=== PATIENT | male | born 1985 ===

== ENCOUNTER 2017-10-11 01:06 | Inpatient (IN) | payer OTHER ==
[2017-10-11 01:19] VITALS: BMI 26.4
[2017-10-11 01:23] VITALS: O2SAT 98
[2017-10-11 02:16] LABS: BASO % 0.3 % (0.0-2.0); EOS # 0.2 K/uL (0.0-0.7); EOS % 2.9 % (0.0-4.0); HEMOGLOBIN 16.2 g/dL (12.0-18.0); LYMPH # 0.9 K/uL (1.0-4.3); LYMPH % 14.5 % (20.0-40.0); MEAN CELL VOLUME 87.3 fl (80.0-94.0); MEAN CORPUSCULAR HEMOGLOBIN 30.5 pg (27.0-31.0); MEAN PLATELET VOLUME 9.2 fl (7.2-11.7); MONO # 0.4 K/uL (0.0-0.8); MONO % 5.6 % (0.0-10.0); NEUT # 4.8 K/uL (1.8-7.0); NEUT % 76.7 % (50.0-75.0); RBC 5.32 Mil/uL (4.40-5.90); RED CELL DISTRIBUTION WIDTH 13.8 % (11.5-14.5); WHITE BLOOD COUNT 6.3 K/uL (4.8-10.8)
--- NOTE | 2017-10-11 02:30 | ED PDOC ---
HPI: Psych/Substance Abuse Time Seen by Provider: 10/11/17 01:24 Chief Complaint (Nursing): Psychiatric Evaluation Chief Complaint (Provider): Psychiatric Evaluation History Per: Patient History/Exam Limitations: no limitations Onset/Duration Of Symptoms: Persistent (x2 weeks) Current Symptoms Are (Timing): Still Present Additional Complaint(s): 31 year old male with medical history of PTSD, anxiety and depression, presents to the emergency department for an evaluation of suicidal ideation. Patient admits to recent reckless behavior including drinking alcohol daily and cocaine use (last use was 3 days ago). He reports, around 1999 last night, he felt extremely overwhelmed with personal and emotional stressors and walked up to the roof of his building with intent to jump off of it. He further admits to having suicidal ideation in the past with plan to shoot himself with his gun but no longer has it in his possession. He has no other family nearby as they all live in [place]. Patient has not been on psych medications since discontinuing it in 2010. PMD: none provided Past Medical History Reviewed: Historical Data, Nursing Documentation, Vital Signs Vital Signs: Last Vital Signs Temp 97.8 F 10/11/17 01:19 Pulse 94 H 10/11/17 01:19 Resp 18 10/11/17 01:19 BP 156/93 H 10/11/17 01:19 Pulse Ox 98 10/11/17 01:19 - Medical History PMH: Anxiety, Depression, Post Traumatic Stress Disorder - Surgical History Surgical History: No Surg Hx - Family History Family History: States: Unknown Family Hx - Social History Current smoker - smoking cessation education provided: No Alcohol: > 2 Drinks/Day Drugs: Cocaine - Home Medications Home Medications: Ambulatory Orders Medication Instructions Recorded No Known Home Med 10/11/17 - Allergies Allergies/Adverse Reactions: Allergies Allergy/AdvReac Type Severity Reaction Status Date / Time dextromethorphan Allergy RASH Verified 10/11/17 05:09 Review of Systems ROS Statement: Except As Marked, All Systems Reviewed And Found Negative Psych: Positive for: Anxiety, Suicidal ideation. Negative for: Other (auido or visual hallucination) Physical Exam - Reviewed Nursing Documentation Reviewed: Yes Vital Signs Reviewed: Yes - Physical Exam Comments: GENERAL APPEARANCE: Patient is awake, alert, oriented x 3, pacing around room. Tearful. SKIN: Warm, dry; (-) cyanosis HEAD: (-) scalp swelling, (-) scalp tenderness. EYES: (-) conjunctival pallor, (-) scleral icterus, (-) nystagmus. ENMT: Mucous membranes moist. Airway patent: (-) stridor. NECK: Supple, FROM(-) tenderness, (-) stiffness, (-) lymphadenopathy. CHEST AND RESPIRATORY: (-) rales, (-) rhonchi, (-) wheezes; breath sounds equal. Respirations even and nonlabored. ABDOMEN: Soft, (-) distention, (-) tenderness, (-) guarding. NEURO AND PSYCH: Mental status as above. (+) clear speech and steady gait. Affect: Emotionally distraught, anxious, but cooperative. 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 Pupils equal and reactive; EOMI; (-) facial asymmetry; tongue and uvula midline. Strength symmetric. - Laboratory Results Result Diagrams: 10/11/17 02:12 10/11/17 02:43 - ECG O2 Sat by Pulse Oximetry: 98 (RA) Pulse Ox Interpretation: Normal Medical Decision Making Medical Decision Making: Initial Impression: Psychiatric Evaluation; Suicidal Ideation Initial Plan: * Alcohol serum * CMP * Drug screen, urine * Crisis evaluation * CBC * 1:1 OBS * UA Time: 0206 --Upon crisis evaluation, patient was offered psychiatric admission for further evaluation and treatment as per Dr. Kilgore. Patient agreeable to admission. Clinical Impression: Depression 0355 Labs reviewed. Diagnostic results d/w the patient in great detail. Diagnosis of depression d/w the patient. Based on history, exam and diagnostic results, plan will be for inpatient admission. Patient is medically stable for psychiatric admission. Arrangements made for admission. On exam, patient remains AAOx3. Neck is supple, lungs CTA, cardiac RRR, abdomen is soft and non-tender, neuro exam shows no focal findings. Vitals stable. 0410 EKG requested by psychiatric department. EKG ordered and reviewed. EKG: NSR @ 67bpm (-) ST elevation (-) ectopy; QTc 390 Scribe Attestation: Documented by Caroline Barreto, acting as a scribe for Cat Machado PA-C. Provider Scribe Attestation: All medical record entries made by the Scribe were at my direction and personally dictated by me. I have reviewed the chart and agree that the record accurately reflects my personal performance of the history, physical exam, medical decision making, and the department course for this patient. I have also personally directed, reviewed, and agree with the discharge instructions and disposition. Disposition - Clinical Impression Clinical Impression: Depression, Suicidal ideation - Patient ED Disposition Is Patient to be Admitted: Yes Counseled Patient/Family Regarding: Diagnosis - Disposition Disposition Time: 03:57 Condition: FAIR - Pt Status Changed To: Hospital Disposition Of: Inpatient - Admit Certification Admit to Inpatient:: After my assessment, the patient will require hospitalization for at least two midnights. This is because of the severity of symptoms shown, intensity of services needed, and/or the medical risk in this patient being treated as an outpatient. - POA Present On Arrival: None Results - Lab Results Lab Results: 10/11/17 10/11/17 10/11/17 03:19 03:19 02:43 WBC RBC Hgb Hct MCV MCH MCHC RDW Plt Count MPV Neut % (Auto) Lymph % (Auto) [place] % (Auto) Eos % (Auto) Baso % (Auto) Neut # (Auto) Lymph # (Auto) [place] # (Auto) Eos # (Auto) Baso # (Auto) Sodium 142 Potassium 4.4 Chloride 103 Carbon Dioxide 24 Anion Gap 19 BUN 12 Creatinine 1.0 Est GFR ( Amer) > 60 Est GFR (Non-Af Amer) > 60 Random Glucose 124 H Calcium 9.5 Total Bilirubin 0.5 AST 24 ALT 17 L Alkaline Phosphatase 53 Total Protein 8.1 Albumin 5.0 Globulin 3.1 Albumin/Globulin Ratio 1.6 Urine Color Straw Urine Clarity Clear Urine pH 7.0 Ur Specific [place] 1.011 Urine Protein Negative Urine Glucose (UA) Neg Urine Ketones Negative Urine Blood Negative Urine Nitrate Negative Urine Bilirubin Negative Urine Urobilinogen 0.2-1.0 Ur Leukocyte Esterase Neg Urine RBC (Auto) < 1 Urine Opiates Screen Negative Urine Methadone Screen Negative Ur Barbiturates Screen Negative Ur Phencyclidine Scrn Negative Ur Amphetamines Screen Negative U Benzodiazepines Scrn Negative U Oth Cocaine Metabols Positive H U Cannabinoids Screen Positive H Alcohol, Quantitative 10/11/17 10/11/17 02:12 01:55 WBC 6.3 RBC 5.32 Hgb 16.2 Hct 46.4 MCV 87.3 MCH 30.5 MCHC 35.0 RDW 13.8 Plt Count 200 MPV 9.2 Neut % (Auto) 76.7 H Lymph % (Auto) 14.5 L [place] % (Auto) 5.6 Eos % (Auto) 2.9 Baso % (Auto) 0.3 Neut # (Auto) 4.8 Lymph # (Auto) 0.9 L [place] # (Auto) 0.4 Eos # (Auto) 0.2 Baso # (Auto) 0.0 Sodium Potassium Chloride Carbon Dioxide Anion Gap BUN Creatinine Est GFR ( Amer) Est GFR (Non-Af Amer) Random Glucose Calcium Total Bilirubin AST ALT Alkaline Phosphatase Total Protein Albumin Globulin Albumin/Globulin Ratio Urine Color Urine Clarity Urine pH Ur Specific [place] Urine Protein Urine Glucose (UA) Urine Ketones Urine Blood Urine Nitrate Urine Bilirubin Urine Urobilinogen Ur Leukocyte Esterase Urine RBC (Auto) Urine Opiates Screen Urine Methadone Screen Ur Barbiturates Screen Ur Phencyclidine Scrn Ur Amphetamines Screen U Benzodiazepines Scrn U Oth Cocaine Metabols U Cannabinoids Screen Alcohol, Quantitative < 10
[2017-10-11 02:52] LABS: ALB/GLOB RATIO 1.6 (1.0-2.1); ALT/SGPT 17 U/L (21-72); AST/SGOT 24 U/L (17-59); BLOOD UREA NITROGEN 12 mg/dl (9-20); CALCIUM 9.5 mg/dL (8.4-10.2); GFR AFRICAN-AMERICAN > 60; GFR NON-AFRICAN AMERICAN > 60
[2017-10-11 03:25] LABS: URINE BILIRUBIN NEGATIVE (NEGATIVE); URINE BLOOD NEGATIVE (NEGATIVE); URINE CLARITY CLEAR (Clear); URINE COLOR STRAW (YELLOW); URINE GLUCOSE (UA) NEG (Normal); URINE LEUKOCYTE ESTERASE NEG Leu/uL (Negative); URINE PROTEIN NEGATIVE (NEGATIVE); URINE UROBILINOGEN 0.2-1.0 mg/dL (0.2-1.0)
[2017-10-11 03:48] LABS: BARBITURATES, UR NEGATIVE (NEGATIVE); BENZODIAZEPINES, UR NEGATIVE (NEGATIVE); OPIATES, UR NEGATIVE (NEGATIVE); PHENCYCLIDINE, UR NEGATIVE (NEGATIVE)
[2017-10-11] MEDS ORDERED: Magnesium Hydroxide Susp 30 ml UD PO PRN (04:40)
[2017-10-11] MEDS ORDERED: Alum-Mag Hydrox-Simethicone Susp (30 mL) PO PRN (04:40)
[2017-10-11] MEDS ORDERED: DiphenhydrAMINE 50 mg/ml Inj IM PRN (04:40)
--- NOTE | 2017-10-11 05:00 | PCM.BM ---
<Jerry Gates P - Last Filed: 10/11/17 04:57> Treatment Plan Problems - Problems identified on initial assessmt Hopelessness/Helplessness Date Initiated: 10/11/17 Time Initiated: 04:58 Assessment reference: NA Status: Active Treatment assets and liabiliti Patient Assests: cooperative, physically healthy, negotiates basic needs, cognitively intact Patient Liabilities: poor support system, relationship conflicts, substance abuse - Milieu Protocol Maintain good personal hygiene: daily Encourage regular showers, daily Remind patient to perform daily oral care, daily Assist patient to perform ADL's Conduct patient checks and document Observation sheet: Q15 minutes Maintain personal safety: every shift Educate patient to report safety concerns to staff, every shift Monitor environment for contraband/sharps Medication safety: Monitor for expected outcome, potential side effects: every shift, Assess barriers to learning: every shift, Assess readiness for medication education: every shift <Abdi Brown J - Last Filed: 10/12/17 16:11> Family Contact Family involvement: Family/SO is involved Family contact: Family has been contacted by patient, Patient declines to allow family contact at present Family contact name: Pt refused. Family contacted how many times per week?: 2 - Goals for Treatment Patient goals for treatment: Pt asked to leave during the assesment, yet appeared severely depressed. Rn Family explained the importance to stay and engage in treatment and pt became tearful. Discharge/Continuing Care - Education Needs Education Needs: Patient Medication, Patient Diagnosis/Disease Process, Patient Coping Skills, Patient Aftercare Safety Plan - Discharge Discharge Criteria: Tolerates medication w/o severe side effects, Free of Suicidal thoughts, Free of agitation, Normal sleep pattern, Reduction of target symptoms Discharge to:: Home - Treatment Team Participation Discussed with Family/SO: No <Lyubov Elena - Last Filed: 10/13/17 16:14> Discharge/Continuing Care - Treatment Team Participation Patient/Family/SO Statement: 10/13/17 16:14 Pt. attended tx team this morning to discuss progress on 3NP and tx goals. Pt. reported improvement in symptoms of depression and anxiety since admission. Pt. reported improved sleep and decrease in irritability. Pt. discharge focused and requested to be discharged today. Tx team provided psychoeducation regarding benefits of proper stabilization and importance of having appropriate aftercare secured. Pt. reported being able to seek outpatient therapy services independently in the community, stating [facility] done it before. I [facility] a [facility] Pt. expressed ambivalence towards compliance with medication upon discharge, stating I think I need the meds less than I need therapy. Rn Family encouraged patient to remain on 3NP to receive assistance with aftercare to ensure safety in the community and reduce risk of future hospitalizations. Pt. continues to present as easily irritable and socially withdrawn on 3NP. Pt. encouraged to attend groups on 3NP to promote socialization and improve insight and coping skills. Pt. minimally receptive to feedback. Pt. reports having a trip booked to [place] from 10/19 -10/24 and having plans to relocate to [place] to be with family in the near future. Pt. identified family as protective factors. Was Patient/Family/SO present at Treatment Team Meeting: Yes <Lori Souza - Last Filed: 10/15/17 09:33> - Diagnosis (1) Depression Status: Acute Interventions: pharmacotherapy psychotherapy 10/15/17 09:32
[2017-10-11] MEDS: Multivitamin With Minerals Tab PO SCH (09:19)
--- NOTE | 2017-10-11 10:13 | CARD ---
APPROVED REPORT EKG Measurement Heart [id number] <Conclusion> Normal sinus rhythm Normal ECG
--- NOTE | 2017-10-11 15:27 | CP.PCM.CON ---
History of Present Illness - History of Present Illness History of Present Illness: 31 y/o with NO past medical history is admitted to psychiatry unit for evaluation of suicidal ideation and attempts. Pt states being drinking excessive amount of alcohol, cocaine and marihuana use every day for the past 2 weeks. Pt tried to commit suicide by jumping out from a roof and came to ED yesterday looking for help. Pt admits to suicidal attempt 8 months ago and 2 years ago. Pt c/o headache but attributes to high alcohol intake. Pt reports being on the [employer] in the past and has NO idea on what to do with his life. Pt denies fever, chest pain, SOB, abdominal pain, palpitations, nausea, vomiting, change in bowel movement or rash. NKDA Medications: None. PMHx: denied. PSHx: denied. FHx: NC SHx: Alcohol abuse, marihuana consumption, 2 cigarettes every other day. Review of Systems - Constitutional Constitutional: Headache. absent: Anorexia, Chills - EENT Eyes: absent: Change in Vision - Cardiovascular Cardiovascular: absent: Chest Pain, Chest Pain at Rest, Claudication, Diaphoresis - Respiratory Respiratory: absent: Cough, Dyspnea, Hemoptysis - Gastrointestinal Gastrointestinal: absent: Abdominal Pain, Belching, Bloating, Change in Bowel Habits - Genitourinary Genitourinary: absent: Difficulty Urinating, Dysuria, Hematuria - Neurological Neurological: absent: Abnormal Hearing, Abnormal Movements, Convulsions, Dizziness Past Patient History - Past Social History Alcohol: > 2 Drinks/Day Drugs: Cocaine - CARDIAC Hx Cardiac Disorders: No - PULMONARY Hx Respiratory Disorders: No Hx Tuberculosis: No - NEUROLOGICAL Hx Neurological Disorder: No HX Cerebrovascular Accident: No Hx Seizures: No - HEENT Hx HEENT Problems: No - RENAL Hx Chronic Kidney Disease: No - ENDOCRINE/METABOLIC Hx Endocrine Disorders: No - HEMATOLOGICAL/ONCOLOGICAL Hx Blood Disorders: No Hx Cancer: No Hx Human Immunodeficiency Virus (HIV): No - INTEGUMENTARY Hx Dermatological Problems: No - MUSCULOSKELETAL/RHEUMATOLOGICAL Hx Musculoskeletal Disorders: No - GASTROINTESTINAL Hx Gastrointestinal Disorders: No - GENITOURINARY/GYNECOLOGICAL Hx Genitourinary Disorders: No Hx Sexually Transmitted Disorders: No - PSYCHIATRIC Hx Anxiety: Yes Hx Depression: Yes Hx Substance Use: Yes (mj and cocaine daily past 3wks) - SURGICAL HISTORY Hx Surgeries: No - ANESTHESIA Hx Anesthesia: No Meds Allergies/Adverse Reactions: Allergies Allergy/AdvReac Type Severity Reaction Status Date / Time dextromethorphan Allergy RASH Verified 10/11/17 05:09 - Medications Medications: Current Medications Acetaminophen (Tylenol 325mg Tab) 650 mg PO Q4 PRN PRN Reason: pain level 4-7 Al Hydrox/Mg Hydrox/Simethicone (Maalox Plus 30 Ml) 30 ml PO Q4 PRN PRN Reason: Dyspepsia Bupropion HCl (Wellbutrin) 75 mg PO DAILY [facility] Diphenhydramine HCl (Benadryl) 50 mg IM Q6 PRN PRN Reason: Extrapyramidal S/S Unable PO Diphenhydramine HCl (Benadryl) 50 mg PO Q6 PRN PRN Reason: Extrapyramidal Symptoms Diphenhydramine HCl (Benadryl) 50 mg PO HS PRN PRN Reason: Sleep Folic Acid (Folic Acid) 1 mg PO DAILY [facility] Last Admin: 10/11/17 09:18 Dose: 1 mg Gabapentin (Neurontin) 100 mg PO TID [facility] Haloperidol (Haldol) 5 mg PO Q4 PRN PRN Reason: Agitation Haloperidol Lactate (Haldol) 5 mg IM Q4 PRN PRN Reason: Agitation, Unable to Take PO Lorazepam (Ativan) 2 mg IM Q4 PRN PRN Reason: Anxiety/Agitation,Unable PO Lorazepam (Ativan) 1 mg PO TID [facility] Last Admin: 10/11/17 13:11 Dose: 1 mg Lorazepam (Ativan) 1 mg PO TID PRN PRN Reason: Anxiety Magnesium Hydroxide (Milk Of Magnesia) 30 ml PO HS PRN PRN Reason: Constipation Multivitamins/Minerals (Therapeutic-M Tab) 1 tab PO DAILY [facility] Last Admin: 10/11/17 09:19 Dose: 1 tab Thiamine HCl (Vitamin B1 Tab) 100 mg PO DAILY [facility] Last Admin: 10/11/17 09:19 Dose: 100 mg Trazodone HCl (Desyrel) 100 mg PO HS [facility] Physical Exam - Constitutional Appears: No Acute Distress - Head Exam Head Exam: NORMAL INSPECTION - Eye Exam Eye Exam: EOMI, Normal appearance, PERRL - ENT Exam ENT Exam: Mucous Membranes Moist, Normal Exam - Neck Exam Neck exam: Positive for: Full Rom, Normal Inspection. Negative for: Lymphadenopathy, Meningismus - Respiratory Exam Respiratory Exam: Clear to Auscultation Bilateral, NORMAL BREATHING PATTERN - Cardiovascular Exam Cardiovascular Exam: REGULAR RHYTHM, +S1, +S2 - GI/Abdominal Exam GI & Abdominal Exam: Normal Bowel Sounds, Soft. absent: Guarding, Tenderness - Extremities Exam Extremities exam: Positive for: full ROM, normal inspection. Negative for: joint swelling, pedal edema, tenderness - Neurological Exam Neurological exam: Alert, Normal Gait, Oriented x3 - Psychiatric Exam Psychiatric exam: Depressed Results - Vital Signs Recent Vital Signs: Last Vital Signs Temp 97.8 F 10/11/17 01:19 Pulse 67 10/11/17 04:29 Resp 18 10/11/17 01:19 BP 122/63 10/11/17 04:29 Pulse Ox 98 10/11/17 04:27 - Labs Result Diagrams: 10/11/17 02:12 10/11/17 02:43 Labs: Laboratory Results - last 24 hr 10/11/17 10/11/17 10/11/17 01:55 02:12 02:43 WBC 6.3 RBC 5.32 Hgb 16.2 Hct 46.4 MCV 87.3 MCH 30.5 MCHC 35.0 RDW 13.8 Plt Count 200 MPV 9.2 Neut % (Auto) 76.7 H Lymph % (Auto) 14.5 L [place] % (Auto) 5.6 Eos % (Auto) 2.9 Baso % (Auto) 0.3 Neut # (Auto) 4.8 Lymph # (Auto) 0.9 L [place] # (Auto) 0.4 Eos # (Auto) 0.2 Baso # (Auto) 0.0 Sodium 142 Potassium 4.4 Chloride 103 Carbon Dioxide 24 Anion Gap 19 BUN 12 Creatinine 1.0 Est GFR ( Amer) > 60 Est GFR (Non-Af Amer) > 60 Random Glucose 124 H Calcium 9.5 Total Bilirubin 0.5 AST 24 ALT 17 L Alkaline Phosphatase 53 Total Protein 8.1 Albumin 5.0 Globulin 3.1 Albumin/Globulin Ratio 1.6 Urine Color Urine Clarity Urine pH Ur Specific [place] Urine Protein Urine Glucose (UA) Urine Ketones Urine Blood Urine Nitrate Urine Bilirubin Urine Urobilinogen Ur Leukocyte Esterase Urine RBC (Auto) Urine Opiates Screen Urine Methadone Screen Ur Barbiturates Screen Ur Phencyclidine Scrn Ur Amphetamines Screen U Benzodiazepines Scrn U Oth Cocaine Metabols U Cannabinoids Screen Alcohol, Quantitative < 10 10/11/17 10/11/17 03:19 03:19 WBC RBC Hgb Hct MCV MCH MCHC RDW Plt Count MPV Neut % (Auto) Lymph % (Auto) [place] % (Auto) Eos % (Auto) Baso % (Auto) Neut # (Auto) Lymph # (Auto) [place] # (Auto) Eos # (Auto) Baso # (Auto) Sodium Potassium Chloride Carbon Dioxide Anion Gap BUN Creatinine Est GFR ( Amer) Est GFR (Non-Af Amer) Random Glucose Calcium Total Bilirubin AST ALT Alkaline Phosphatase Total Protein Albumin Globulin Albumin/Globulin Ratio Urine Color Straw Urine Clarity Clear Urine pH 7.0 Ur Specific [place] 1.011 Urine Protein Negative Urine Glucose (UA) Neg Urine Ketones Negative Urine Blood Negative Urine Nitrate Negative Urine Bilirubin Negative Urine Urobilinogen 0.2-1.0 Ur Leukocyte Esterase Neg Urine RBC (Auto) < 1 Urine Opiates Screen Negative Urine Methadone Screen Negative Ur Barbiturates Screen Negative Ur Phencyclidine Scrn Negative Ur Amphetamines Screen Negative U Benzodiazepines Scrn Negative U Oth Cocaine Metabols Positive H U Cannabinoids Screen Positive H Alcohol, Quantitative Assessment & Plan - Assessment and Plan (Free Text) Assessment: 31 y/o M admitted to psychiatric unit for evaluation of suicidal attempt. -No medical issues for now. Plan Alcohol intoxication/Cocaine user/Cannabis user/Unspecified Mood disorder -Continue management as per Psychiatry team. DVT Prophylaxis -SCDs -Pt encouraged to ambulate. - Date & Time Date: 10/11/17 Time: 14:25
--- NOTE | 2017-10-11 16:09 | PCM.PSYCH ---
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 increased sleep, low motivation, passive suicidal ideation, denied perceptual disturbances , denied homicidal ideation Current Medications: Active Medications Generic Name Dose Route Start Last Admin Trade Name Freq PRN Reason Stop Dose Admin Acetaminophen 650 mg 10/11/17 04:40 Tylenol 325mg Tab PO Q4 PRN pain level 4-7 Al Hydrox/Mg Hydrox/Simethicone 30 ml 10/11/17 04:40 Maalox Plus 30 Ml PO Q4 PRN Dyspepsia Bupropion HCl 75 mg 10/11/17 13:45 10/11/17 15:39 Wellbutrin PO 75 mg DAILY [facility] Administration Diphenhydramine HCl 50 mg 10/11/17 04:40 Benadryl IM Q6 PRN Extrapyramidal S/S Unable PO Diphenhydramine HCl 50 mg 10/11/17 04:40 Benadryl PO Q6 PRN Extrapyramidal Symptoms Diphenhydramine HCl 50 mg 10/11/17 05:25 Benadryl PO HS PRN Sleep Folic Acid 1 mg 10/11/17 09:00 10/11/17 09:18 Folic Acid PO 1 mg DAILY [facility] Administration Gabapentin 100 mg 10/11/17 17:00 Neurontin PO TID [facility] Haloperidol 5 mg 10/11/17 04:40 Haldol PO Q4 PRN Agitation Haloperidol Lactate 5 mg 10/11/17 04:40 Haldol IM Q4 PRN Agitation, Unable to Take PO Lorazepam 2 mg 10/11/17 04:40 Ativan IM Q4 PRN Anxiety/Agitation,Unable PO Lorazepam 1 mg 10/11/17 09:00 10/11/17 13:11 Ativan PO 1 mg TID [facility] Administration Lorazepam 1 mg 10/11/17 13:41 Ativan PO TID PRN Anxiety Magnesium Hydroxide 30 ml 10/11/17 04:40 Milk Of Magnesia PO HS PRN Constipation Multivitamins/Minerals 1 tab 10/11/17 09:00 10/11/17 09:19 Therapeutic-M Tab PO 1 tab DAILY [facility] Administration Thiamine HCl 100 mg 10/11/17 09:00 10/11/17 09:19 Vitamin B1 Tab PO 100 mg DAILY [facility] Administration Trazodone HCl 100 mg 10/11/17 22:00 Desyrel PO HS [facility] Past Psychiatric History - Past Psychiatric History Explanation of prior treatment: histroy of depression no previous hospitalizations or suicidal attempts History of ETOH/Drug Use: cocaine cannabis alcohol Pertinent Medical Hx (Current Medical&Sleep Prob, Allergies): Allergies Allergy/AdvReac Type Severity Reaction Status Date / Time dextromethorphan Allergy RASH Verified 10/11/17 05:09 No Known Home Med 10/11/17 Mental Status Examination - Personal Presentation Personal Presentation: Looks stated age - Affect Affect: Constricted, Depressed - Motor Activity Motor Activity: Psychomotor Retardation - Reliability in Providing Information Reliability in Providing Information: Poor, due to altered mood - Speech Speech: Relevant - Mood Mood: Depressed, Anxious - Formal Thought Process Formal Thought Process: Circumstantial - Hallucinations/Delusions Additional comments: denied perceptual disturbances, non elicited - Obsessions/Compulsions Obsessions: No Compulsions: No - Cognitive Functions Orientation: Person, Place Judgement: Imparied, as evidence by: Poor judgement, Imparied, as evidence by: Lack of insight into illness - Risk Risk: Suicidal, Withdrawal, Diminished functioning - Strength & Assets Inventory Strength & Assets Inventory: Life experience - Limitations Additional comments: poor financial situation DSM 5 DX - DSM 5 DSM 5 Diagnosis: 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
[2017-10-12] MEDS: Multivitamin With Minerals Tab PO SCH (09:30)
[2017-10-12 09:55] LABS: T4 4.67 ug/dl (5.5-11.0)
--- NOTE | 2017-10-12 22:09 | PCM.PYCHPN ---
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 denies c/o side effects medications Problems Identified/Issues Discussed: alteration in mood alteration in coping Medical Problems: per chart pt seen by hospitalist Diagnostic Results: per psychiatry per medicine per nursing per social work per chart DSM 5 Symptoms Update: calmer, no c/o w/d, sleeping improving Medication Change: No Medical Record Reviewed: Yes Consults ordered or reviewed: pt seen by hospitalist Mental Status Examination - Cognitive Function Orientation: Person, Place, Situation, Time Attention: WNL Concentration: WNL Association: WNL Fund of Knowledge: WNL Decription of patient's judgement and insights: impaired - Mood Mood: Depressed, Anxious Additional comments: less - Affect Affect: Constricted, Depressed - Speech Speech: Soft - Formal Thought Process Formal Thought Process: No Impairment, Circumstantial - Homicidal Ideation Homicidal Ideation: No Goal/Treatment Plan - Goal/Treatment Plan Progress Toward Problem(s) and Goals/Treatment Plan: inpt milieu adjust meds per status discharge planning in progress Estimated Date of D/C: 10/15/17 - Smoking Cessation Smoking Cessation Initiated: No
[2017-10-13] MEDS: Multivitamin With Minerals Tab PO SCH (08:37)
--- NOTE | 2017-10-13 15:36 | PCM.PYCHPN ---
Psychiatric Progress Note - Psychiatric Progress Note Patient seen today, length of contact: chart reviewed case discussed with team Patient Chief Complaint: I needto continue with therapy when I leave Problems Identified/Issues Discussed: pt evaluated with treatment team, continues to be guarded, isolative in his room , needs encouragement to attend groups, minimizing the effect of substance use on his current mental status, anhedonic low energy and low motivation , motivational therapy provided and discussed with pt increasing dose of wellbutrin encouraged participation in treatment pt denied any current suicidal or homicidal ideation denied perceptual disturbance Medical Problems: histroy of depression no previous hospitalizations or suicidal attempts DSM 5 Symptoms Update: depression alcohol use disorder cocaine use disorder Medication Change: Yes (increase wellbutrin) Medical Record Reviewed: Yes Mental Status Examination - Cognitive Function Orientation: Person, Place, Situation, Time Attention: WNL Concentration: WNL Association: WNL Fund of Knowledge: WNL - Mood Mood: Depressed, Anxious - Affect Affect: Constricted, Depressed - Speech Speech: Soft - Formal Thought Process Formal Thought Process: No Impairment, Circumstantial - Suicidal Ideation Suicidal Ideation: No - Homicidal Ideation Homicidal Ideation: No Goal/Treatment Plan - Goal/Treatment Plan Need for Continued Stay: Severe depression anxiety Progress Toward Problem(s) and Goals/Treatment Plan: increase wellbutrin 150 mg daily' neurontin 100mg tid motivational therapy Estimated Date of D/C: 10/15/17
[2017-10-14] MEDS: buPROPion SR 150 MG TABLET PO SCH (08:46)
[2017-10-14] MEDS: Multivitamin With Minerals Tab PO SCH (08:48)
[2017-10-14 09:08] VITALS: PULSE 71; RESP 18
--- NOTE | 2017-10-14 14:29 | PCM.PYCHPN ---
Psychiatric Progress Note - Psychiatric Progress Note Patient seen today, length of contact: chart reviewed case discussed with team Patient Chief Complaint: I feel good with wellbutrin Problems Identified/Issues Discussed: pt evaluated . less guarded and less isolative, more interactive with staff and other peers, reported better mood , brighter affect, no reported side effects of wellbutrin , no changes in sleep or appetite pt denied any current suicidal or homicidal ideation denied perceptual disturbance Medical Problems: histroy of depression no previous hospitalizations or suicidal attempts DSM 5 Symptoms Update: major depression cocaine use disorder cannabis use disorder Medication Change: No Medical Record Reviewed: Yes Mental Status Examination - Cognitive Function Orientation: Person, Place, Situation, Time Attention: WNL Concentration: WNL Association: WNL Fund of Knowledge: WNL - Mood Mood: Neutral - Affect Affect: Constricted, Depressed - Speech Speech: Appropriate - Formal Thought Process Formal Thought Process: Circumstantial Psychotic Thoughts and Behaviors: pt denied perceptual disturbances, non elicited - Suicidal Ideation Suicidal Ideation: No - Homicidal Ideation Homicidal Ideation: No Goal/Treatment Plan - Goal/Treatment Plan Need for Continued Stay: Severe depression anxiety Progress Toward Problem(s) and Goals/Treatment Plan: wellbutrin 150 mg daily' neurontin 100mg tid motivational and group therapy Estimated Date of D/C: 10/15/17
--- NOTE | 2017-10-14 15:15 | CP.PCM.PN ---
Subjective - Date & Time of Evaluation Date of Evaluation: 10/14/17 Time of Evaluation: 12:20 - Subjective Subjective: 31 y/o M seen and examined by bedside. Pt reports feeling well. Pt afebrile, tolerating PO, ambulating with NO difficulties, sleeping well and with NO acute events overnight. Pt denies fever, chills, headache, chest pain, SOB, abdominal pain, anusea, vomiting, change in bowel movement, rash or calf pain. Objective - Vital Signs/Intake and Output Vital Signs (last 24 hours): Temp Pulse Resp BP Pulse Ox 98.1 F 71 18 121/77 98 10/14/17 09:00 10/14/17 09:00 10/14/17 09:00 10/14/17 09:00 10/13/17 18:06 - Medications Medications: Current Medications Acetaminophen (Tylenol 325mg Tab) 650 mg PO Q4 PRN PRN Reason: pain level 4-7 Al Hydrox/Mg Hydrox/Simethicone (Maalox Plus 30 Ml) 30 ml PO Q4 PRN PRN Reason: Dyspepsia Bupropion HCl (Wellbutrin Sr 150 Mg) 150 mg PO DAILY [facility] Last Admin: 10/14/17 08:46 Dose: 150 mg Diphenhydramine HCl (Benadryl) 50 mg IM Q6 PRN PRN Reason: Extrapyramidal S/S Unable PO Diphenhydramine HCl (Benadryl) 50 mg PO Q6 PRN PRN Reason: Extrapyramidal Symptoms Diphenhydramine HCl (Benadryl) 50 mg PO HS PRN PRN Reason: Sleep Folic Acid (Folic Acid) 1 mg PO DAILY [facility] Last Admin: 10/14/17 08:49 Dose: Not Given Gabapentin (Neurontin) 100 mg PO TID [facility] Last Admin: 10/14/17 13:17 Dose: 100 mg Haloperidol (Haldol) 5 mg PO Q4 PRN PRN Reason: Agitation Haloperidol Lactate (Haldol) 5 mg IM Q4 PRN PRN Reason: Agitation, Unable to Take PO Lorazepam (Ativan) 2 mg IM Q4 PRN PRN Reason: Anxiety/Agitation,Unable PO Lorazepam (Ativan) 1 mg PO TID PRN PRN Reason: Anxiety Magnesium Hydroxide (Milk Of Magnesia) 30 ml PO HS PRN PRN Reason: Constipation Multivitamins/Minerals (Therapeutic-M Tab) 1 tab PO DAILY [facility] Last Admin: 10/14/17 08:48 Dose: Not Given Thiamine HCl (Vitamin B1 Tab) 100 mg PO DAILY [facility] Last Admin: 10/14/17 10:04 Dose: 100 mg Trazodone HCl (Desyrel) 100 mg PO HS PRN PRN Reason: Insomnia Last Admin: 10/14/17 00:02 Dose: 100 mg - Labs Labs: 10/11/17 02:12 10/11/17 02:43 - Constitutional Appears: Well, No Acute Distress - Head Exam Head Exam: ATRAUMATIC, NORMAL INSPECTION - Eye Exam Eye Exam: EOMI, PERRL - ENT Exam ENT Exam: Mucous Membranes Moist, Normal External Ear Exam, Normal Oropharynx - Neck Exam Neck Exam: Full ROM. absent: Lymphadenopathy, Meningismus - Respiratory Exam Respiratory Exam: Clear to Ausculation Bilateral, NORMAL BREATHING PATTERN - Cardiovascular Exam Cardiovascular Exam: REGULAR RHYTHM, +S1, +S2 - GI/Abdominal Exam GI & Abdominal Exam: Soft, Normal Bowel Sounds. absent: Guarding, Rigid, Tenderness - Extremities Exam Extremities Exam: Full ROM, Normal Capillary Refill, Normal Inspection. absent : Calf Tenderness, Joint Swelling, Tenderness - Neurological Exam Neurological Exam: Alert, Awake, Oriented x3 Assessment and Plan - Assessment and Plan (Free Text) Assessment: 31 y/o M admitted to psychiatric unit for evaluation of suicidal attempt. -Stable, asymptomatic Plan Alcohol intoxication/Cocaine user/Cannabis user/Unspecified Mood disorder -Continue management as per Psychiatry team. DVT Prophylaxis -SCDs -Pt encouraged to ambulate.
[2017-10-15] MEDS: buPROPion SR 150 MG TABLET PO SCH (08:47)
[2017-10-15] MEDS: Multivitamin With Minerals Tab PO SCH (08:49)
[2017-10-15 09:10] VITALS: BP 112/70; TEMP 96.3
--- NOTE | 2017-10-15 12:52 | PCM.PYCHDC ---
Mental Status Examination - Mental Status Examination Orientation: Person, Place, Situation Memory: Intact Mood: Neutral Affect: Broad Speech: Appropriate Attention: WNL Concentration: WNL Association: WNL Fund of Knowledge: WNL Formal Thought Process: No Impairment Description of patient's judgement and insight: partial insight , fair judgment Psychotic Thoughts and Behaviors: pt denied perceptual disturbances, non elicited Suicidal Ideation: No Current Homicidal Ideation?: No Discharge Summary - Discharge Note Reason for Hospitalization: pt requested help pt with previous diagnosis of depression and alcohol use disorder, no history of previous psychiatric hospitalizations , pt has been in therapy briefly in 2009 after 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 increased sleep, low motivation, passive suicidal ideation, denied perceptual disturbances , denied homicidal ideation Consultations:: List each consultation separately and include: 1. Reason for request. 2. Findings. 3. Follow-up Summary of Hospital Course include:: 1. Description of specific treatment plan utilized for patients during their course of treatmen. 2. Summarize the time- course for resolution of acute symptoms and/or regressed behaviors. 3. Describe issues identified and worked on during hospitalization. 4. Describe medication utilized. 5. Describe medical problems identified and treated. 6. Reassessment of suicide risk Summary of Hospital Course: pt on admission was depressed , isolative , pt was started on ativan and monitored for symptoms and signs of alcohol withdrawal started on neurontin 100mg tid for anxiety, wellbutrin 75mg which was uptitrated to 150mg daily, trazodone 100mg qhs for insomnia motivational therapy provided in reference to substance use, pt gradually presented with brighter mood and affect, encouraged to attend groups, denied side effects of medications on discharge mental status was stable, pt denied any current suicidal or homicidal ideation denied perceptual disturbance follow up arranged by ocial services at outpatient clinic - Diagnosis (1) Depression Current Visit: Yes Status: Acute - Final Diagnosis (DSM 5) Condition upon Discharge: FAIR DSM 5: 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
== END 2017-10-15 13:16 | disposition home or self-care (01) | DRG 430 ==
LOC: H.ER 01:06 → H.ERHOLD 03:57 → H.PSYCH 04:37
PROVIDERS: ADMIT Psychiatry & Neurology Psychiatry; ATTEND Psychiatry & Neurology Psychiatry
PROC: GZHZZZZ Group Psychotherapy (ICD-10-PCS; principal; 2017-10-11)
PROC: GZ58ZZZ Individual Psychotherapy, Cognitive-Behavioral (ICD-10-PCS; 2017-10-11)
PROC: HZ52ZZZ Individual Psychotherapy for Substance Abuse Treatment, Cognitive-Behavioral (ICD-10-PCS; 2017-10-11)
DX: F33.9 Major depressive disorder, recurrent, unspecified (principal); F14.14 Cocaine abuse with cocaine-induced mood disorder; F43.10 Post-traumatic stress disorder, unspecified; F10.10 Alcohol abuse, uncomplicated; R45.851 Suicidal ideations; G47.00 Insomnia, unspecified; Z79.899 Other long term (current) drug therapy